=== PATIENT | male | born 1940 | race Caucasian/White ===

== ENCOUNTER 2024-10-02 11:09 | Outpatient (CLI) | payer MEDICARE, BC, SELFPAY | END 2024-10-02 11:10 | disposition home or self-care (01) | LOC: AMB 10-03 11:30 | PROVIDERS: Visit Provider Internal Medicine | DX: R42 Dizziness and giddiness (principal); R11.2 Nausea with vomiting, unspecified | CPT/HCPCS: A0425; A0427 ==